=== PATIENT | male | born 1945 | race Caucasian/White ===

== ENCOUNTER 2016-08-01 10:50 | Emergency (ER) | payer MEDICARE, OTHER ==
[~2016-08-01] VITALS: Ht 177.8 cm; Wt 96.7 kg
[~2016-08-01 10:50] MED LIST: LEVA750T9 PO; LISI2.5T3 PO; METF-324 PO; ROSU10 PO; TESS200C PO
[2016-08-01 10:57] VITALS: BP 117/88; PULSE 47; RESP 16; TEMP 98.1; O2SAT 97
[2016-08-01] MEDS ORDERED: INDO50CA PO (11:17)
--- NOTE | 2016-08-01 11:25 | PD ---
HPI Chief Complaint: Musculoskeletal Complaint Time Seen by Provider: 11:18 Travel History International Travel<30 days: No Contact w/Intl Traveler<30days: No Traveled to known affect area: No History of Present Illness HPI 71-year-old male presents to the emergency room for evaluation of left great toe pain and swelling for the past 3 days. Patient states pain has progressively worsened every day. He denies trauma or injury. He has history of gout in the right great toe but has not had a flare in 10 years. Pain is constant, worse with ambulation and range of motion. Localized to the great toe without radiation. He took a leftover oxycodone this morning which eased the pain and allowed him to sleep. He also soaked his foot in warm water. He denies paresthesias. Patient denies kidney disease. He only takes aspirin and atorvastatin. PFSH Past Medical History High Cholesterol: Yes Diabetes: Yes (diet control) Patient Takes Glucophage: No Gout: Yes Hypertension: Yes (no meds diet) Tetanus Vaccination: < 5 Years Influenza Vaccination: Yes Past Surgical History Tonsillectomy: Yes (T & A) Social History Alcohol Use: Yes (occas. beer) Tobacco Use: No Substance Use: No Allergies-Medications (Allergen,Severity, Reaction): Coded Allergies: No Known Allergies (Verified , 08/01/16) Reported Meds & Prescriptions Reported Meds & Active Scripts Active Naprosyn (Naproxen) 250 Mg Tab 250 Mg PO BID Review of Systems Except as stated in HPI: all other systems reviewed are Neg Physical Exam Narrative GENERAL: Well-nourished, well-developed elderly male in no acute distress. Afebrile. Ambulatory. SKIN: Focused skin assessment warm/dry. Slightly erythematous left great toe. No evidence of cellulitis or infection. HEAD: Normocephalic. EYES: No scleral icterus. No injection or drainage. NECK: Supple, trachea midline. No JVD or lymphadenopathy. CARDIOVASCULAR: Bradycardic. Regular rhythm without murmurs, gallops, or rubs. RESPIRATORY: Breath sounds equal bilaterally. No accessory muscle use. EXTREMITY: Left great toe tender to palpation especially over the MCP joint. Range of motion slightly limited secondary to pain. Mild to moderate edema of the left. Less than 2 second capillary refill distally. 2+ dorsalis pedis pulse. Data Data Last Documented VS Vital Signs Date Time Temp Pulse Resp B/P Pulse Ox O2 Delivery O2 Flow Rate FiO2 08/01/16 11:06 16 08/01/16 10:57 98.1 47 117/88 97 MDM Medical Decision Making Medical Screen Exam Complete: Yes Emergency Medical Condition: Yes Medical Record Reviewed: Yes Differential Diagnosis Podagra versus gout versus fracture unlikely Narrative Course 71-year-old male with a history of gout presents to the emergency room for evaluation of left great toe pain and swelling for the past 3 days. Patient denies trauma or injury. Physical exam reveals mildly erythematous and edematous left great toe/MCP joint. It is moderately tender to palpation. Range of motion slightly limited secondary to pain. No evidence of septic arthritis. Patient is afebrile and well-appearing in the emergency room. Slightly bradycardic at 47 beats per minute which patient states is normal for him. No indication for imaging at this time. Patient will be discharged with prescription for indomethacin and told to follow up with primary care physician or return to the emergency room for worsening symptoms. He understands and agrees to this plan. Diagnosis Primary Impression: Podagra Referrals: Primary Care Physician Patient Instructions: General Instructions, Gout (ED) Additional Instructions: Rest and drink plenty of fluids. Take Naprosyn with food as directed, as needed for pain. Apply ice to the affected area for 20 minutes at a time, as needed for pain and swelling. Follow-up with a primary care physician. Return to the emergency room for worsening symptoms. Med/Other Pt SpecificInfo: Prescription(s) given Scripts Naproxen (Naprosyn)250 Mg [id number] Mg PO BID #10 TAB Ref 0 Prov:Roque Armenta MD 08/01/16 Disposition: 01 DISCHARGE HOME Condition: Stable Loren Neely August 01, 2016 11:25 Loren Neely August 01, 2016 11:25 Indomethacin 50 Mg Cap50 Mg PO TID 5 Days Ref 0 Take with food, milk, or antacids to decrease stomach adverse effects. Prov:Roque Armenta MD 08/01/16 Disposition: 01 DISCHARGE HOME Condition: Stable Loren Neely August 01, 2016 11:25
[2016-08-01] MEDS ORDERED: NAPR250T57 PO (11:27)
== END 2016-08-01 11:40 | disposition home or self-care (01) ==
LOC: PHEFT 10:50
DX: M10.9 Gout, unspecified (principal); R00.1 Bradycardia, unspecified; E11.9 Type 2 diabetes mellitus without complications; I10 Essential (primary) hypertension
CPT/HCPCS: 99283

== ENCOUNTER → 2016-11-05 | Day surgery (SDC) | payer OTHER ==
[~2016-11-05] MED LIST changes: +ACETAMINOPHEN 1000 MG/100 ML VIAL ONE; +BALANCED SALT SOLN OPHT IRRIG 15 ML BTL ONE; +BUPIVACAINE/EPINEPHRINE 0.25% 50 ML VIAL ONE; +LACTATED RINGER'S 1,000 ML BAG IV ONE; -LEVA750T9 PO; +LIDOCAINE 1%/EPINEPHrine 1:200,000 PF SOLN 30 ML VIAL ONE; -LISI2.5T3 PO; +MEPERIDINE HCL 25 MG/ML VIAL ONE; -METF-324 PO; +NAPR250T57 PO; +NEOMYCIN/POLYMYXIN/BACITRACIN OINT 15 GM TUBE ONE; +NEOMYCIN/POLYMYXIN/HYDROCORT OTIC SUSP 10 ML BTL ONE; +ONDANSETRON HCL 4 MG/2 ML VIAL IV PUSH ONE; +PROPOFOL 200 MG/20 ML AMP IV ONE; -ROSU10 PO; -TESS200C PO; +ceFAZolin INJ 1,000 MG VIAL ONE
--- NOTE | 2016-11-05 13:58 | TN ---
cc: NEYMAR HOLMAN M.D. DATE OF SURGERY: 11/05/2016 PREOPERATIVE DIAGNOSIS 1. Biopsy of basal cell carcinoma located on the right baptism. 2. Biopsy of basal cell carcinoma located on the mid chest. 3. 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 POSTOPERATIVE DIAGNOSIS 1. Biopsy of basal cell carcinoma located on the right baptism. 2. Biopsy of basal cell carcinoma located on the mid chest. 3. 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 PROCEDURE 1. Wide local excision, right baptism with a primary defect of 1.5 x 1.5 cm. This required intermediate repair of 3 x 1.5 cm. 2. Wide local excision of the left nasal ala squamous cell carcinoma resulting in a primary defect of 1.5 x 1.5 cm. This required a frozen section which was negative and nasolabial fold reconstruction for a secondary defect of 4 x 1.5 cm. 3. Wide local excision of basal cell carcinoma located in the mid chest resulting in a primary defect of 2.5 cm. 4. Excision of an inclusion cyst of about 2.5 cm located in the lower mid chest with defect 2.5 cm x 3 cm. The closure for the mid chest is a tissue rearrangement, secondary defect of 2.5 x 7 cm and that included the inclusion cyst. SURGEON Neymar Holman MD ANESTHESIA 20 cc of 1% lidocaine with epinephrine mixed with 0.25% Marcaine in a 2:1 ratio. COMPLICATIONS None. DETAILS OF PROCEDURE He was properly consented, marked and properly anesthetized. The skin was sterilized with Microcyn and sterile draping applied. Excision was done of the left nasal ala squamous cell carcinoma and sent to pathology for frozen section which failed to demonstrate any pathology. This was properly reconstructed by a nasolabial fold tissue rearrangement which was elevated and inset into the defect utilizing 5-0 Monocryl suture and 5-0 fast-absorbing gut. Attention was directed to the right baptism where an ellipse was done of this lesion of 1.5 cm including the lesion. The intermediate repair was done utilizing 3-0 Monocryl suture, dermis and subcu for a secondary defect of 3 x 1.5 cm. Finally the right basal cell carcinoma located in the center chest was excised resulting in a defect of 2.5 cm in diameter. A V-Y tissue rearrangement reconstruction was carried out and along the incision an inclusion cyst was removed. This measured 2 cm and was sent to pathology for further analysis. The closure as a "Y" included 3-0 Monocryl suture and 3-0 Prolene. Again, the secondary defect of this lesion was 7 x 2.5 cm. Absorbent dressings were applied. The patient tolerated the procedure well. MD ODETTE Syed/ANDRE /1:37 PM /1:42 PM LILIANE
== END | disposition home or self-care (01) ==
LOC: ESDC 09:45
PROVIDERS: ATTEND Plastic Surgery
DX: C44.319 Basal cell carcinoma of skin of other parts of face (principal); C44.519 Basal cell carcinoma of skin of other part of trunk; C44.321 Squamous cell carcinoma of skin of nose; L72.0 Epidermal cyst
CPT/HCPCS: 00300; 00400; 11603; 11642; 12052; 14001; 14060; 88304; 88305; 88331; J0131; J0690; J2175; J2405; J3010; J7120